=== PATIENT | female | born 1990 | race Caucasian/White ===

== ENCOUNTER 2017-05-03 06:00 | Inpatient (IN) ==
[2017-05-03] MEDS ORDERED: Lidocaine -MPF 2% 5 ML VIAL ONE (06:43)
[2017-05-03] MEDS ORDERED: Naloxone 0.4 MG/ML INJ IVP PRN (06:52)
[2017-05-03] MEDS ORDERED: Ondansetron 4 MG/2 ML VIAL IVP PRN (06:52)
[2017-05-03] MEDS ORDERED: *HR* Nalbuphine 20 MG/ML AMPUL IVP PRN (06:52)
[2017-05-03] MEDS ORDERED: Metoclopramide 10 MG/2 ML VIAL IVP PRN (06:52)
[2017-05-03] MEDS ORDERED: Famotidine 20 MG/2 ML VIAL IVP PRN (06:52)
[2017-05-03] MEDS ORDERED: miSOPROStol 25 MCG TABLET PO PRN (06:56)
[2017-05-03] MEDS ORDERED: Ringers Solution, Lactated 1,000 ML IVC SCH (07:00)
--- NOTE | 2017-05-03 07:22 | Anesthesia Evaluation PreOp ---
Date of Encounter: 05/03/17 Time of Encounter: 07:20 - Past History Planned Operation: alexia Cardiac History: Denies any Significant Hx Pulmonary History: Snore DEBUBBLIZER History: Denies Any Significant HX Other Medical History: GERD Anesthesia History: No Prior Anesthetic Complications, Past Anesthesia (feli, EGD) : Yes (39 weeks, ) Alcohol Use: none Drug use: none Medications and Allergies Pnv with Ca,No.72/Iron/FA [Pnv Plus Multivit Tab] 1 tab PO DAILY [History] 3 Allergy/AdvReac Type Severity Reaction Status Date / Time No Known Allergies Allergy Verified 05/03/17 06:39 - Meds/Allergy Pre-op Review Medications Reviewed: Yes Allergies Reviewed: Yes Beta Blockers on Current Med List: No Anesthesia Exam O2 Sat Height 1.7 m Weight 128.367 kg bp 123/81 hr 103 rr 18 spo2 98 Height: 66 Weight: 128 - HEENT Pupil (Motor): Pupils equal Mallampati: I Teeth: Normal Oral Opening: Greater than 3 - DEBUBBLIZER LOC: Oriented DEBUBBLIZER Motor: Normal RUE, Normal LUE, Normal RLE, Normal LLE, Normal Face DEBUBBLIZER Sensory: Normal: RUE, LUE, RLE, LLE, Face - Cardiac Rhythm: Regular Murmur: None JVD: No Carotid Bruit: No - Pulmonary Breath Sounds: bilateral Clear Respiratory Effort: Symmetrical Anesthesia Assess/Plan ASA Score: 2 Modified Index Scale for Level of Consciousness: Cooperative, oriented, and tranquil Anesthetic Plan: Regional Monitoring Plan: Standard Monitors
[2017-05-03 07:57] LABS: Basophils % 0.3 %; Eosinophils # 0.2 K/mcL (0.0-0.6); Eosinophils % 1.3 %; Hematocrit 38.1 % (35.3-44.9); Hemoglobin 12.8 g/dL (11.5-15.4); Immature Granulocytes % 0.4 % (0-4); Lymphocytes # 2.1 K/mcL (0.6-4.6); Lymphocytes % 18.1 %; Mean Corpuscular HGB Conc 33.6 g/dL (31.6-35.5); Mean Corpuscular Hemoglobin 27.7 pg (28.0-33.3); Mean Corpuscular Volume 82.5 fL (83.0-100.0); Mean Platelet Volume 10.1 fL (9.4-12.4); Monocytes # 0.7 K/mcL (0.0-1.3); Monocytes % 5.7 %; Neutrophils # 8.8 K/mcL (1.6-8.9); Platelet Count 232 K/mcL (140-400); Red Blood Count 4.62 M/mcL (3.82-4.97); Red Cell Distribution Width 15.6 % (11.5-14.5); Segmented Neutrophils % 74.2 %
--- NOTE | 2017-05-03 09:11 | OB/GYN History & Physical ---
Date of Encounter: 05/03/17 Time of Encounter: 09:09 Assessment and Plan (1) 39 weeks gestation of Current visit: Yes Status: Acute Schedule elective induction for term with favorable cervix Cytotec 50mcg PO x1 Epidural for pain management History of Present Illness Chief complaint: Schedule elective induction of labor HPI: Ms. Stahl is a 27 year old female at 39w1d presents to labor and delivery for schedule induction of labor. Patient reports +FM, denies contractions, LOF or VB. Patient denies any questions or concerns. Blood type: O+ Rubella: Immune Hep B: Nonreactive GBS: Negative Past Med Surg Social Fam HX - Past Medical History Source: patient Medical history: no medical history Psychiatric history: no psych history - Past Surgical History Surgical History: cholecystectomy, other - Social History Smoking Status: Never smoker Smokeless Tobacco Status: No Alcohol use: none Drug use: none Occupational status: employed Current living situation: Home - Independent Activity Level: Independent ambulation Recent Out of Country Travel Within the Last 8 Weeks: No Exposure or Possible Exposure to Illness During Travel: No - Family History Mother Adopted: No Family Member Ethnicity: Non- Living Status: Still Living Hx Family Cardiac Disorders: No Hx Family Respiratory Disorders: No Hx Family Cancer: No Hx Family GI Disorders: No Hx Family Genitourinary Disorders: No Hx Family Endocrine Disorder: No Hx Family Musculoskeletal Disorders: No Hx Family Neuromuscular Disorders: No Hx Family Neurologic Disorders: No Hx Family HEENT Disorders: No Hx Family Autoimmune Disorders: No Hx Family Reproductive Disorders: No Hx Family Psychosocial Disorders: No Hx Family Medical Disorders: No Obstetrical History - Pregnancies : 3 Para: 2 Term: 2 : 0 Ab's: 0 Livin Medications and Allergies Pnv with Ca,No.72/Iron/FA [Pnv Plus Multivit Tab] 1 tab PO DAILY [History] 3 Allergy/AdvReac Type Severity Reaction Status Date / Time No Known Allergies Allergy Verified 05/03/17 06:39 Review of System OB - Constitutional Constitutional ROS IM: no chills, no fever(s), no headache(s) - Cardiovascular Cardiovascular: no chest pain, no lightheadedness, no palpitations, no syncope - Respiratory Respiratory: no cough - Gastrointestinal Gastrointestinal: no abdominal pain, no cramping, no diarrhea, no heartburn, no nausea, no vomiting - Genitourinary Genitourinary: no abnormal vaginal bleeding, no dysuria, no flank pain, no urinary frequency Exam - Constitutional Constitutional: well developed, well nourished, no acute distress, average body habitus - HEENT HEENT: Normocephaly, Mucus Membranes Moist - Neck Neck exam: full ROM, normal inspection, supple - Lungs Respiratory exam: CTAB - Cardiovascular Cardiovascular exam: RRR, +S1, +S2 - Abdomen Abdomen: Present: bowel sounds normal, gravid, non tender - Extremities Extremities exam: full ROM, normal inspection Deep Tendon Reflex Grade: 2+ Normal - Cervix Dilation: 3 Effacement: 70 Station: -1 - Uterus Uterus exam: Present: normal size, normal contour - Anus/Rectum Anus/Rectum: Present: normal perianal skin - Comments Comments: FHR 145 bpm moderate variability +15x15 accels no decels noted. CAt. 1 tracing. Irregular contractions noted. Results Result Diagrams: 05/03/17 07:10 Abnormal lab results WBC 11.8 K/mcL (4.3-11.1) H 05/03/17 07:10 MCV 82.5 fL (83.0-100.0) L 05/03/17 07:10 MCH 27.7 pg (28.0-33.3) L 05/03/17 07:10 RDW 15.6 % (11.5-14.5) H 05/03/17 07:10 All other labs normal.
--- NOTE | 2017-05-03 11:49 | OB Labor Progress Note ---
Date of Encounter: 05/03/17 Time of Encounter: 11:47 Labor Progress Note - Subjective Subjective: Patient doing well. Discussed POC with patient. Patient denies any questions or concerns. - Cervix Cervix: 3.5/80/-1 - Heart Tones Heart Tones: 145 bpm moderate variability +15x15 accels no decels noted. Cat. 1 tracing - [place]: 4-5 min apart - Interventions Interventions: SVE, AROM. Moderate amount of clear fluid. Patient tolerated well. - Plan Plan: Continue labor management Epidural when desires for pain management
[2017-05-03] MEDS ORDERED: Epidural Premix (fent/bupiv) 110 ML EP ONE ×2 (11:55→17:09)
[2017-05-03] MEDS ORDERED: *HR* FentaNYL (PF) 100 MCG/2 ML VIAL ONE (11:55)
[2017-05-03] MEDS ORDERED: *HR* Ropivacaine/PF 0.2% 20 ML VIAL ONE ×2 (11:57→15:17)
[2017-05-03] MEDS ORDERED: Oxytocin 20 units/ LR 1000 mL 20 UNIT/1,000 ML BAG IVC SCH ×2 (12:00→19:12)
--- NOTE | 2017-05-03 12:27 | Anesthesia Procedures ---
Date of Encounter: 05/03/17 Time of Encounter: 12:25 Procedures: Anesthesia - Epidural/Spinal Patient ID/Chart reviewed: Yes Patient examined: Yes OB Eval: Gestational age: 39 OB Eval: : 1 OB Eval: Hx Para: 0 OB Eval: Dilated at (cm): 3 OB Eval: Contractions: Non-stressed pattern Consent Obtained: Yes Supplemental Oxygen: None/Room Air Site Prep: Aseptic Technique Patient position: upright Local Anesthetic: Lidocaine 1% Amount of Local Anesthetic used: 2 Touhy Needle Gauge: 18 Touhy Needle Depth (cm): 9 Catheter Depth at Skin (cm): 15 Test Dose (1.5% Lido + Epi): Volume given (mls): 3 Test Dose Result: Negative Loading Dose: Fentanyl (mcg): 100 Loading Dose: Other: 6cc 0.2% ropivicaine Loading Dose Administered: Thru Touhy Needle Infusion Rate (mls/hr): [address]: Tegaderm Interspace Used: L3-L4 Loss of Resistance (HEATHER): Yes Blood: No CSF: No Paresthesia: No
[2017-05-03] MEDS ORDERED: EPHEDrine 50 MG/ML VIAL IVP PRN (12:31)
[2017-05-03] MEDS ORDERED: *HR* FentaNYL (PF) 100 MCG/2 ML VIAL EP ONE (12:31)
[2017-05-03] MEDS ORDERED: Epidural Premix (fent/bupiv) 110 ML EP SCH (12:45)
--- NOTE | 2017-05-03 15:05 | OB Labor Progress Note ---
Date of Encounter: 05/03/17 Time of Encounter: 15:03 Labor Progress Note - Subjective Subjective: Patient reports "cramping" is getting worse. Patient has hit the bolus button for epidural with no relief. - Cervix Cervix: 5/90/-1 - Heart Tones Heart Tones: 145 bpm moderate variability +15x15 accels no decels noted. CAT. 1 tracing - [place]: 2.5-4 min apart - Interventions Interventions: SVE, Patient repositioned. Anesthesia notified of pain level - Plan Plan: Continue labor management, anesthesia to evaluate epidural.
--- NOTE | 2017-05-03 15:42 | Anesthesia Progress Note ---
Date of Encounter: 05/03/17 Time of Encounter: 15:39 Anesthesia Note - Note Note: 05/03/17 15:39 10ml 0.2% ropivicaine via epidural for c/o abdominal cramping with contractions.
--- NOTE | 2017-05-03 16:35 | Anesthesia Progress Note ---
Date of Encounter: 05/03/17 Time of Encounter: 16:33 Anesthesia Note - Note Note: 05/03/17 16:33 Patient still c/o pain with contractions despite epidural bolus. Epidural catheter removed and new epidural inserted one level above, L2-3. Good HEATHER, negative heme, negative parasthesias, negative CSF. FHR unchanged.
--- NOTE | 2017-05-03 17:12 | OB Labor Progress Note ---
Date of Encounter: 05/03/17 Time of Encounter: 17:08 Labor Progress Note - Subjective Subjective: Patient resting comfortable with epidural in place. - Cervix Cervix: 6/100/0 - Heart Tones Heart Tones: 135 bpm moderate variability +15x15 accels no decels noted. CAt. 1 tracing - [place]: 3-5 min apart - Interventions Interventions: SVE - Plan Plan: Continue labor management
--- NOTE | 2017-05-03 18:51 | OB/GYN Procedure Note ---
Delivery - Delivery Date: 05/03/17 Provider: Danielle Schultz Intrapartum events: none Delivery induction: AROM, oxytocin, misoprostol Delivery monitor: external FHT, external uterine Anesthesia: epidural Estimated Blood Loss: 100 - Infant (s) A Infant Delivery Date: 05/03/17 Delivery Time: 18:21 Presentation: vertex Position: LUIS Route of delivery: Gender: Female Viability: Viable Pounds: 8 Ounces: 1 Weight Gram: 3675 kg at 1 minute: 9 at 5 mins: 9 Shoulder Dystocia: not encountered Specimens collected: cord blood Placenta: spontaneous, uterine exploration Cord: 3 umbilical vessels - Repair Episiotomy: none Laceration Description: Perineal - 1st Degree (repaired with 3-0 vicryl) - Complications Delivery complications: none - Disposition Mom disposition: stable in LDR disposition: stable in LDR - Comments Comments: Called to LDR, patient complete and feels pressure. Patient placed in stirrups and prepped for delivery. Under maternal effort patient spontaneously delivered a viable female infant over a 1st degree laceration. No nuchal, shoulder dystocia or meconium was encountered. Infant placed on maternal abdomen. Cord was cut and clamped after pulsation ceased. Cord blood collected. 1st degree laceration was repaired with 3-0 vicryl. Placenta delivered spontaneously and intact. Pericare provided. All counts correct. Both Mother and infant stable in LDR for 2 hour recovery.
[2017-05-03] MEDS ORDERED: Measles/Mumps/Rubella Vacc 0.5 ML VIAL SQ PRN (19:12)
[2017-05-03] MEDS ORDERED: Ibuprofen 600 MG TABLET PO PRN (19:12)
[2017-05-03] MEDS ORDERED: *HR* HYDROcodone/Acet 5/325 mg TABLET PO PRN (19:12)
[2017-05-03] MEDS ORDERED: Benzocaine/Menthol 56 GM AEROSOL SPRAY TP PRN (19:12)
[2017-05-03] MEDS ORDERED: Acetaminophen 325 MG TABLET PO PRN (19:12)
[2017-05-04 08:12] VITALS: BP 115/82
[2017-05-04] MEDS ORDERED: Prenatal Vit/FA 1 EACH TABLET PO SCH (09:00)
--- NOTE | 2017-05-04 09:18 | Discharge Summary ---
Date of Encounter: 05/04/17 Time of Encounter: 09:15 - Discharge Diagnosis (1) Vaginal delivery Priority: Primary Status: Acute Comments: S/P Vaginal delivery day 1 Pain is well controlled Lochia light and without clots Voiding without difficulty Tolerating regular diet VSS Bottle feeding Discharge home tonight with infant - Discharge Medications Prescriptions: Ibuprofen [Motrin] 600 mg PO Q6HR PRN #30 tablet PRN Reason: Cramping Docusate [Colace] 100 mg PO BID PRN #20 capsule PRN Reason: Constipation Ferrous Sulfate 325 mg PO DAILY #30 tablet Home Medications: Pnv with Ca,No.72/Iron/FA [Pnv Plus Multivit Tab] 1 tab PO DAILY [History] Acetaminophen [Tylenol] 650 mg PO Q6HR PRN tablet 05/04/17 [Rx] Benzocaine/Menthol [place] [Dermoplast [place]] 1 appl TP QID PRN aerosol 05/04/17 [Rx] Docusate [Colace] 100 mg PO BID PRN #20 capsule 05/04/17 [Rx] Ferrous Sulfate 325 mg PO DAILY #30 tablet 05/04/17 [Rx] Ibuprofen [Motrin] 600 mg PO Q6HR PRN #30 tablet 05/04/17 [Rx] Allergies/Adverse Reactions: 3 Allergy/AdvReac Type Severity Reaction Status Date / Time No Known Allergies Allergy Verified 05/03/17 06:39 Data Procedures and tests throughout hospitalization: Laboratory Tests 05/03/17 07:10 WBC 11.8 H RBC 4.62 Hgb 12.8 Hct 38.1 MCV 82.5 L MCH 27.7 L MCHC 33.6 RDW 15.6 H Plt Count 232 MPV 10.1 Immature Gran % 0.4 Seg Neutrophils % 74.2 Lymphocytes % 18.1 Monocytes % 5.7 Eosinophils % 1.3 Basophils % 0.3 Neutrophils # 8.8 Lymphocytes # 2.1 Monocytes # 0.7 Eosinophils # 0.2 Basophils # 0.0 Date of admission: 05/03/17 06:01 Primary care physician: PCP NONE Discharging clinician: Tonya Keller Anticipated date of discharge: 05/04/17 - Patient Status Disposition: Home, Self-Care Condition: Good Functional capacity at discharge: independent ambulation Overall status at discharge: patient is progressing back to baseline - Discharge Instructions Follow Up With: NONE,PCP [Primary Care Provider] - Danielle Schultz CNM [Non-Partnered Physician] - - Diet and Activity Activity: increase activity as tolerated Diet: regular diet Hospital Course Reason for admission: induction of labor, IUP at term Delivery: Episiotomy: none Laceration: 1st degree Other procedures: none complications: none Discharge diagnosis: IUP at term delivered baby: female Time Attestation: Total time spent providing and/or coordinating discharge services: Time Spent: Less than 30 minutes Exam - Constitutional Vitals: Temp Pulse Resp BP Pulse Ox 98.0 F 88 16 115/82 99 05/04/17 08:00 05/04/17 08:08 05/04/17 08:08 05/04/17 08:00 05/04/17 08:00 General appearance IM: cooperative, A&O X 3, pleasant - Respiratory Respiratory exam: Present: CTAB - Cardiovascular Cardiovascular exam IM: Present: RRR, +S1, +S2 - GI/Abdominal GI/Abdominal exam IM: normal bowel sounds, soft - Rectal Rectal exam: deferred - Uterine Tone: Firm Uterus Position: 1 Finger Below Umbilicus, Midline - Extremities Exam Extremities exam IM: Present: normal capillary refill, normal inspection, radial pulses palpable and symmetrical - Neurological Exam Neurological exam: alert, oriented X3
== END 2017-05-04 19:26 | disposition home or self-care (01) | DRG 775 ==
LOC: 1NENULAB 06:01 → 1NENUOBS 21:13
PROVIDERS: ADMIT Advanced Practice Midwife; ATTEND Advanced Practice Midwife